=== PATIENT | female | born 1940 | race African-American/Black ===

== ENCOUNTER 2016-04-25 18:43 | Emergency (ER) | payer MEDICARE, MEDICAID ==
[2016-04-25 19:25] VITALS: BP 121/98
--- NOTE | 2016-04-25 19:41 | ER Document Report ---
ED General - General Chief Complaint: Other Stated Complaint: CHOKING Mode of Arrival: Medic Information source: Patient, Relative Notes: This is a 75-year-old female who is sent for evaluation from [facility] where she resides. Patient was witnessed to have a choking episode during dinner tonight at about 1830. The nursing staff there was concerned and so EMS was notified. By the time EMS arrived. The daughter states that the choking episode had resolved. Patient is now at her normal baseline mental status and breathing comfortably. The patient has no complaints. Family members at the bedside state that this is a frequent occurrence for the patient as she does not take her time with eating. She is on a pured food and thickened liquid diet. Family member states that this occurs frequently and that patient is at her baseline now. TRAVEL OUTSIDE OF THE [place] IN LAST 30 DAYS: No - Related Data Allergies/Adverse Reactions: tuberculin, purified protein deriva [From Tubersol] Allergy (Verified 04/25/16 19:19) Past Medical History - General Information source: Relative - Social History Smoking Status: Never Smoker Frequency of alcohol use: None Lives with: Skilled Nursing Family History: Reviewed & Not Pertinent - Past Medical History Cardiac Medical History: Reports: Hx Hypertension Denies: Hx Heart Murmur Pulmonary Medical History: Reports: Hx Bronchitis, Hx Pneumonia Denies: Hx Tuberculosis Neurological Medical History: Reports: Hx Cerebrovascular Accident. Denies: Hx Seizures Endocrine Medical History: Reports: Hx Diabetes Mellitus Type 2 Musculoskeltal Medical History: Reports Hx Arthritis Psychiatric Medical History: Reports: Hx Dementia, Hx Depression Past Surgical History: Reports: Hx Appendectomy, Hx Orthopedic Surgery - hip replacement. Denies: Hx Bowel Surgery, Hx Section, Hx Cholecystectomy , Hx Coronary Artery Bypass Graft, Hx Gastric Bypass Surgery, Hx Herniorrhaphy, Hx Hysterectomy, Hx Mastectomy, Hx Pacemaker, Hx Tonsillectomy, Hx Tubal Ligation - Immunizations Hx Diphtheria, Pertussis, Tetanus Vaccination: Yes Hx Pneumococcal Vaccination: 04/11/10 Review of Systems - Review of Systems Constitutional: denies: Chills, Fever EENT: No symptoms reported. denies: Nose congestion, Sinus discharge, Throat pain, Difficulty swallowing, Throat swelling Cardiovascular: denies: Chest pain, Dyspnea Respiratory: denies: Cough, Short of breath, Sputum Gastrointestinal: denies: Abdominal pain, Vomiting Genitourinary: denies: Burning, Dysuria Musculoskeletal: No symptoms reported Skin: No symptoms reported Neurological/Psychological: No symptoms reported Physical Exam - Vital signs Vitals: Temp Pulse Resp BP Pulse Ox 97.9 F 65 20 121/98 H 97 04/25/16 19:06 04/25/16 19:06 04/25/16 19:06 04/25/16 19:06 04/25/16 19:06 - Notes Notes: PHYSICAL EXAMINATION: GENERAL: Well-appearing, well-nourished elderly female in no acute distress. Smiling and comfortable HEAD: Atraumatic, normocephalic. EYES: Pupils equal round and reactive to light, extraocular movements intact, sclera anicteric, conjunctiva are normal. ENT: nares patent, oropharynx clear without exudates. Moist mucous membranes. NECK: Normal range of motion, supple without lymphadenopathy LUNGS: Breath sounds clear to auscultation bilaterally and equal. No wheezes rales or rhonchi. HEART: Regular rate and rhythm without murmurs ABDOMEN: Soft, nontender, normoactive bowel sounds. No guarding, no rebound. No masses appreciated. EXTREMITIES: Normal range of motion, no pitting or edema. No cyanosis. NEUROLOGICAL: Cranial nerves grossly intact. Normal speech. Normal sensory, motor exams. PSYCH: Normal mood, normal affect. SKIN: Warm, Dry, normal turgor, no rashes or lesions noted. Course - Re-evaluation Re-evalutation: 04/25/16 19:43 Offered to do labs/xray if pt was symptomatic at all or if family/patient were worried. Pt states she just wants to go home, and family states that this is a normal occurence for pt and they do not wish to have workup done at this time. Pt is at her baseline and has no complaints. I discussed strict return precautions and they are very agreeable to return [facility] tonight. - Vital Signs Vital signs: Temp Pulse Resp BP Pulse Ox 97.9 F 65 20 121/98 H 97 04/25/16 19:06 04/25/16 19:06 04/25/16 19:06 04/25/16 19:06 04/25/16 19:06 Discharge - Discharge Clinical Impression: Choking due to food (regurgitated) Condition: Good Disposition: HOME-SNF (ED ONLY) Additional Instructions: Choking Episode You have had a choking episode. This may occur from eating too quickly or not chewing food properly. If you have recurrent trouble swallowing or any worsening symptoms (fever, cough, breathing difficulty, etc) please return to the ER. Please follow up with you primary physician within 2-3 days.
== END 2016-04-25 20:30 ==
LOC: ER 18:43
DX: R09.89 Other specified symptoms and signs involving the circulatory and respiratory systems (principal); I10 Essential (primary) hypertension; E11.9 Type 2 diabetes mellitus without complications; Z86.73 Personal history of transient ischemic attack (TIA), and cerebral infarction without residual deficits; Z96.649 Presence of unspecified artificial hip joint
CPT/HCPCS: 99284

== ENCOUNTER 2020-01-03 16:13 | Inpatient (IN) | payer MEDICARE, MEDICAID ==
[~2020-01-03 16:13] MED LIST: ATROPINE SULFATE INJ 1 MG/10 ML DISP.SYRIN IV ONE; DOPAMINE HCL/D5W 800 MG/250 ML RTU BAG IV ONE; EPINEPHRINE INJ 1 MG/10 ML DISP.SYRIN ONE; LIDOCAINE 2% INJ-PF (100 MG/5 ML) SYRINGE ONE; SODIUM BICARBONATE 8.4% INJ 50 MEQ/50 ML DISP.SYRIN ONE; SUCCINYLCHOLINE CHLORIDE INJ 200 MG/10 ML VIAL ONE
[2020-01-03] MEDS ORDERED: RINGERS SOLUTION,LACTATED 1,000 ML IV ONE ×2 (16:28→16:37)
--- NOTE | 2020-01-03 16:42 | ER Document Report ---
ED General - General Stated Complaint: SEPSIS Time Seen by Provider: 01/03/20 16:24 Primary Care Provider: LETI FRYE MD [Primary Care Provider] - Follow up as needed TRAVEL OUTSIDE OF THE [place] IN LAST 30 DAYS: No - HPI Notes: Patient is a 79-year-old female brought into the emergency department for evaluation by EMS from the [facility]. Only report I have is from EMS. Evidently they noted her heart rate to be 60 this morning, were notably concerned. She has not been very talkative, seemed very tired. They checked her heart rate and found it to be the 40s. She has been having some diarrhea. EMS notes that her temperature was found to be 87 rectally. She was found to be markedly hypotensive, she was brought here to the emergency department for further evaluation. - Related Data Allergies/Adverse Reactions: tuberculin, purified protein deriva [From Tubersol] Allergy (Verified 01/03/20 16:57) Home Medications: Vitamin B6 50 mg daily, lisinopril 20 mg daily, Coreg 12 and half milligrams daily, hydralazine 50 mg daily, Flector patch twice a day, Lexapro 20 mg daily, Prilosec 20 mg daily, Aggrenox aspirin 1 capsule orally twice a day, ferrous sulfate 325 mg twice a day, donepezil 10 mg at bedtime, oxygen at 2 L continuously Past Medical History - General Information source: Emergency Med Personnel, Outside Facility Records - Social History Smoking Status: Never Smoker Frequency of alcohol use: None Family History: Reviewed & Not Pertinent - Past Medical History Cardiac Medical History: Reports: Hx Hypertension Denies: Hx Heart Murmur Pulmonary Medical History: Reports: Hx Bronchitis, Hx Pneumonia Denies: Hx Tuberculosis Neurological Medical History: Reports: Hx Cerebrovascular Accident. Denies: Hx Seizures, Hx Parkinson's Disease Endocrine Medical History: Reports: Hx Diabetes Mellitus Type 2 Musculoskeletal Medical History: Reports Hx Arthritis, Denies Hx Systemic Lupus Erythematosus Psychiatric Medical History: Reports: Hx Dementia, Hx Depression Past Surgical History: Reports: Hx Appendectomy, Hx Orthopedic Surgery - hip replacement. Denies: Hx Bowel Surgery, Hx Section, Hx Cholecystectomy, Hx Coronary Artery Bypass Graft, Hx Gastric Bypass Surgery, Hx Herniorrhaphy, Hx Hysterectomy, Hx Mastectomy, Hx Pacemaker, Hx Tonsillectomy, Hx Tubal Ligation - Immunizations Hx Diphtheria, Pertussis, Tetanus Vaccination: Yes Hx Pneumococcal Vaccination: 04/11/10 Physical Exam - Vital signs Vitals: Temp Pulse Ox 87.2 F L 100 01/03/20 16:15 01/03/20 16:15 - Notes Notes: This is a 79-year-old female who appears her stated age in a mild amount of distress. She is drowsy. She will awake to verbal stimuli, but only momentarily. She will intermittently follow commands. Head is normocephalic and atraumatic, pupils are 2 mm, round, reactive. Oral mucosa is moist. Heart is bradycardic. Lungs shows scattered rhonchi. Abdomen is soft, diffusely tender without rebound or guarding. 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 She has bandages in place over pressure ulcers on bilateral feet. Skin is cool and dry. Course - Re-evaluation Re-evalutation: 01/03/20 16:44 Patient presents to the emergency department for evaluation. Laboratory inves tigations were ordered. She was placed on a cardiac cath rn. Per my orders, bearhug are ordered, warmed fluids administered. I am concerned as the patient does have EKG changes consistent with hypothermia. She is currently hypotensive, will add more warm fluids. I added basic blood work, general sepsis work-up. Patient is currently stable, we will continue to monitor closely. 01/03/20 17:05 Noticed on monitor patient continued to be significantly hypotensive. Walked in and place order for Levophed to be started. Patient was having episodic significant bradycardia down into the 30s. Pacer pads placed. Helpful at this time that the Levophed titration will help with cardiac output. Patient will now awake with tactile stimuli, no longer verbal. She is in Trendelenburg, joel hugger and warm fluids in place. 01/03/20 18:54 Please see nursing notes for exact times. Patient became further bradycardic, further hypotensive. Decision was made to administer atropine to help with her heart rate, while transcutaneous pacing was initiated. Patient became less and less responsive. Decision was made to intubate the patient, provide sedation, and allow for more comfortable transcutaneous pacing. Intubation was performed with a MAC 3 and a 7.5 ET tube on glide scope. Patient did not have desaturation less than 94% during this. Please see separate procedure note. During the course of this, after intubation, the patient did lose pulses. Patient was administered epinephrine, bicarb, atropine. Please see nurses notes for exact dosages and timing. Patient already had Levophed drip initiated. Further pressor support was ordered with dopamine. We called the labs we did not have results back in regards to her CBC. I was concerned in light of her pale conjunctive that she was in fact anemic. Verbal report was given to me that the patient's hemoglobin was 6.7. I signed off on emergency release blood, 2 units of packed red blood cells were delivered to the emergency department to be rapidly infused to the patient. The patient did lose pulses once again. CPR initiated. During both episodes of CPR pulses were palpable with compressions. She received multiple rounds of epinephrine again, and ROSC was achieved. She was moderately hypotensive multiple times after regaining pulses. I did order an epinephrine drip, but her blood pressure has been a little labile. It has not yet been hung. I do have sedation in place. She is given cefepime to cover for her UTI and sepsis. I spoke with the ICU manager play, Dr. Jacinta Bojorquez, who graciously agreed to come see the patient. 01/03/20 19:01 Please note I spoke with patient's daughter, Reanna. She asks that no further heroic measures to be taken. This was witnessed by Butch Stover LPN. - Vital Signs Vital signs: Temp Pulse Resp BP Pulse Ox 87.2 F L 17 105/74 95 01/03/20 16:15 01/03/20 18:56 01/03/20 18:56 01/03/20 18:36 - Laboratory Result Diagrams: 01/03/20 16:22 01/03/20 16:22 Laboratory results interpreted by me: 01/03/20 01/03/20 01/03/20 16:22 16:22 16:22 WBC 18.1 H RBC 2.33 L Hgb 6.7 L Hct 20.6 L Seg Neuts % (Manual) 93 H Lymphocytes % (Manual) 1 L Abs Neuts (Manual) 17.4 H Abs Lymphs (Manual) 0.2 L PT 19.0 H Chloride 115 H Carbon Dioxide 21 L BUN 66 H Creatinine 1.70 H Est GFR ( Amer) 35 L Est GFR (MDRD) Non-Af 29 L Lactic Acid Calcium 8.3 L AST 13 L Total Protein 5.3 L Albumin 1.9 L Urine Protein Urine Bilirubin Urine Urobilinogen Ur Leukocyte Esterase Urine Ascorbic Acid Crossmatch 01/03/20 01/03/20 01/03/20 16:43 18:00 18:00 WBC RBC Hgb Hct Seg Neuts % (Manual) Lymphocytes % (Manual) Abs Neuts (Manual) Abs Lymphs (Manual) PT Chloride Carbon Dioxide BUN Creatinine Est GFR ( Amer) Est GFR (MDRD) Non-Af Lactic Acid 4.2 H Calcium AST Total Protein Albumin Urine Protein 100 H Urine Bilirubin SMALL H Urine Urobilinogen 4.0 H Ur Leukocyte Esterase SMALL H Urine Ascorbic Acid 20 H Crossmatch See Detail 01/03/20 18:03 WBC RBC Hgb Hct Seg Neuts % (Manual) Lymphocytes % (Manual) Abs Neuts (Manual) Abs Lymphs (Manual) PT Chloride Carbon Dioxide BUN Creatinine Est GFR ( Amer) Est GFR (MDRD) Non-Af Lactic Acid Calcium AST Total Protein Albumin Urine Protein Urine Bilirubin Urine Urobilinogen Ur Leukocyte Esterase Urine Ascorbic Acid Crossmatch See Detail - Diagnostic Test Radiology reviewed: Reports reviewed Radiology results interpreted by me: 01/03/20 18:58 Chest X-Ray 01/03/20 16:26 IMPRESSION: Limited by suboptimal patient positioning. No discrete radiographic evidence of acute cardiopulmonary abnormality. - EKG Interpretation by Me Additional EKG results interpreted by me: 01/03/20 18:58 Junctional rhythm at 45 bpm. Normal axis. IVCD with Dugan waves noted. Nonspecific ST changes but no acute ST elevation. No old studies available for comparison. Procedures - Intubation Orotracheal Airway evaluation: Large tongue, Loose teeth Medications: Etomidate, Succinylcholine Intubation method: Orotracheal Blade size: 3 Equipment used: Glidescope ETT size: 7.5 End tidal CO2 confirmed: Yes Intubation Complications: No complications Critical Care Note - Critical Care Note Total time excluding time spent on procedures (mins): 85 Discharge - Discharge Clinical Impression: Bradycardia Sepsis Qualifiers: Sepsis type: sepsis due to unspecified organism Sepsis acute organ dysfunction status: with acute organ dysfunction Severe sepsis acute organ dysfunction type: unspecified Severe sepsis shock status: with septic shock Qualified Code(s): A41 .9 - Sepsis, unspecified organism UTI (urinary tract infection) Qualifiers: Urinary tract infection type: site unspecified Hematuria presence: without hematuria Qualified Code(s): N39.0 - Urinary tract infection, site not specified Hypothermia Qualifiers: Encounter type: initial encounter Qualified Code(s): T68.XXXA - Hypothermia, initial encounter Diarrhea Qualifiers: Diarrhea type: unspecified type Qualified Code(s): R19.7 - Diarrhea, uns pecified Condition: Serious Disposition: ADMITTED INPATIENT Admitting Provider: [place] (Assembly Detailer) Unit Admitted: ICU Referrals: LETI FRYE MD [Primary Care Provider] - Follow up as needed
[2020-01-03 16:51] LABS: VENOUS BLOOD BASE EXCESS -4.1 mmol/L; VENOUS BLOOD HCO3 22.1 mmol/L (20-32); VENOUS BLOOD PCO2 45.3 mmHg (35-63); VENOUS BLOOD PH 7.31 (7.30-7.42)
[2020-01-03 16:53] LABS: INTERNATIONAL RATION (INR) 1.58
[2020-01-03 16:55] LABS: HEMATOCRIT 20.6 % (36.0-47.0); MEAN CORPUSCULAR HGB CONC 32.7 g/dL (32.0-36.0); MEAN CORPUSCULAR VOLUME 89 fl (80-97); PLATELET COUNT 230 10^3/uL (150-450); RED BLOOD COUNT 2.33 10^6/uL (3.72-5.28); RED CELL DISTRIBUTION WIDTH 13.7 % (11.5-14.0); WHITE BLOOD COUNT 18.1 10^3/uL (4.0-10.5)
[2020-01-03] MEDS ORDERED: NOREPINEPHRINE BITARTRATE INJ/PF 4 MG/4 ML SDV IV ONE ×3 (16:57→23:13)
[2020-01-03 17:12] LABS: ALBUMIN 1.9 g/dL (3.5-5.0); ALKALINE PHOSPHATASE 78 U/L (38-126); BILIRUBIN,DIRECT 0.3 mg/dL (0.0-0.4); BILIRUBIN,TOTAL 0.3 mg/dL (0.2-1.3); BLOOD UREA NITROGEN 66 mg/dL (7-20); CARBON DIOXIDE 21 mmol/L (22-30); GLUCOSE 102 mg/dL (75-110); TOTAL PROTEIN 5.3 g/dL (6.3-8.2)
[2020-01-03] MEDS ORDERED: ATROPINE SULFATE INJ 1 MG/1 ML VIAL IV ONE (17:17)
[2020-01-03] MEDS ORDERED: ATROPINE SULFATE INJ 0.4 MG/1 ML VIAL IV ONE (17:17)
[2020-01-03] MEDS ORDERED: ATROPINE SULFATE INJ 1 MG/1 ML VIAL ONE ×2 (17:18→17:41)
[2020-01-03] MEDS ORDERED: ETOMIDATE INJ/PF 20 MG/10 ML SDV IV ONE (17:21)
[2020-01-03 17:23] LABS: ANION GAP 7 (5-19); ASPARTATE AMINO TRANSFERASE 13 U/L (14-36); CALCIUM 8.3 mg/dL (8.4-10.2); CHLORIDE 115 mmol/L (98-107); POTASSIUM 4.6 mmol/L (3.6-5.0)
[2020-01-03 17:46] LABS: HEMOGLOBIN 6.7 g/dL (12.0-15.5)
[2020-01-03] MEDS ORDERED: NORMAL SALINE 250 ML IV PRN ×2 (17:47)
[2020-01-03 17:48] LABS: ABSOLUTE LYMPHOCYTES# (MANUAL) 0.2 10^3/uL (0.5-4.7); ABSOLUTE MONOCYTES # (MANUAL) 0.5 10^3/uL (0.1-1.4); BAND NEUTROPHILS % (MANUAL) 3 % (3-5); BASOPHILS % (MANUAL) 0 % (0-2); EOSINOPHILS % (MANUAL) 0 % (0-6); LYMPHOCYTES % (MANUAL) 1 % (13-45); MONOCYTES % (MANUAL) 3 % (3-13); SEGMENTED NEUTROPHILS % (MAN) 93 % (42-78); TOTAL CELLS COUNTED 100
--- NOTE | 2020-01-03 17:48 | RADIOLOGY REPORT (SQ) ---
EXAM DESCRIPTION: CHEST SINGLE VIEW IMAGES COMPLETED DATE/TIME: 01/03/2020 5:35 pm REASON FOR STUDY: sepsis COMPARISON: 04/14/2014 EXAM PARAMETERS: NUMBER OF VIEWS: One view. TECHNIQUE: Single frontal radiographic view of the chest acquired. RADIATION DOSE: NA LIMITATIONS: Patient rotation. FINDINGS: LUNGS AND PLEURA: No opacities, masses or pneumothorax. No pleural effusion. MEDIASTINUM AND HILAR STRUCTURES: Grossly normal. HEART AND VASCULAR STRUCTURES: Grossly normal. BONES: No acute findings. HARDWARE: None in the chest. OTHER: No other significant finding. IMPRESSION: Limited by suboptimal patient positioning. No discrete radiographic evidence of acute c ardiopulmonary abnormality. TECHNICAL DOCUMENTATION: JOB ID: [id number] 2010 [employer]- All Rights Reserved Reading location - IP/workstation name: [email or web address]
[2020-01-03 17:50] LABS: OVALOCYTES SLIGHT; PLATELET COMMENT ADEQUATE
[2020-01-03 17:53] LABS: C DIFFICILE GDH NEGATIVE (NEGATIVE)
[2020-01-03] MEDS ORDERED: CEFEPIME 2 GM/D5W RTU 2 GM/50 ML RTUPB IV ONE (18:02)
[2020-01-03] MEDS ORDERED: MIDAZOLAM HCL 50 MG/100 ML RTUINJ IV PRN (18:27)
[2020-01-03 18:35] LABS: APPEARANCE,URINE TURBID; BILIRUBIN,URINE SMALL (NEGATIVE); COLOR,URINE YELLOW; GLUCOSE, URINE NEGATIVE (NEGATIVE); KETONES,URINE NEGATIVE (NEGATIVE); LEUKOCYTE ESTERASE,URINE SMALL (NEGATIVE); NITRITE,URINE NEGATIVE (NEGATIVE); PROTEIN,URINE 100 mg/dL (NEGATIVE); URINE SPECIFIC GRAVITY 1.021
[2020-01-03] MEDS: DEXTROSE 5%-WATER 250 ML with EPINEPHRINE/PF 1 MG IV PRN ×4 (20:12→23:56)
[2020-01-03] MEDS: DOPAMINE HCL/DEXTROSE 5%-WATER 800 MG/250 ML RTUINJ IV PRN ×2 (20:12→22:54)
[2020-01-03] MEDS ORDERED: GLUCAGON,HUMAN RECOMB 1 MG INJ SUBCUT PRN (21:00)
[2020-01-03] MEDS ORDERED: DEXTROSE 50%-WATER 25 GM/50 ML DISP.SYRIN IV PRN ×2 (21:00)
[2020-01-03] MEDS ORDERED: RINGERS SOLUTION,LACTATED 1,000 ML IV PRN (21:00)
[2020-01-03] MEDS ORDERED: DEXTROSE 40% GEL 15 GM TUBE PO PRN ×2 (21:00)
[2020-01-03 21:32] LABS: ARTERIAL BLOOD BASE EXCESS -6.9 mmol/L; ARTERIAL BLOOD FIO2 100%; ARTERIAL BLOOD H2CO3 0.82 mmol/L (1.05-1.35); ARTERIAL BLOOD HCO3 16.6 mmol/L (20-24); ARTERIAL BLOOD O2 SATURATION 99.9 % (94-98); ARTERIAL BLOOD PCO2 27.1 mmHg (35-45); ARTERIAL BLOOD TOTAL CO2 17.4 mmol/L (21-25)
--- NOTE | 2020-01-03 21:40 | CRITICAL CARE ADMISSION REPORT ---
HPI Date:: 01/03/20 Time:: 21:00 Reason for ICU Reason:: Respiratory Failure, status post cardiac arrest. Admission Date/Time & PCP: Admission Date/Time: 01/03/20 19:20 Primary Care Provider: LETI FRYE HPI: 79-year-old female [facility] resident was noticed to have a heart rate in the 60s this morning and seemed very tired. Her heart rate decreased to the 40s and she was found to be markedly hypotensive. She was found by EMS to be hypothermic to 87 degrees rectally. She was brought to the emergency room where she was found to have EKG changes consistent with hypothermia. She was given fluids, however continued to the hypotensive and was started on a Levophed drip. Patient then became less responsive with worsening bradycardia and was given atropine and subsequently started on transcutaneous pacing. As she became less responsive from that point, she was intubated and placed on mechanical ve ntilation. Following intubation, she was without pulses. She received multiple rounds of CPR and ROSC was achieved after 45 minutes. Patient remained transcutaneously paced, was given cefepime for evidence of a UTI and remained on Levophed and dopamine drips. Upon evaluation, patient had an improved blood pressure and Levophed was titrated down. She arrived to the intensive care unit without attached pacing pads and had her own inherent rhythm. Consent was obtained for a central line and arterial line placement and goals of care were further discussed with her daughter Dipesh who wishes no further escalation of care after the central line placement and no CPR as per the patient's known wishes. - Diagnosis/Plan (1) Bradycardia Is this a current diagnosis for this admission?: Yes Plan: Patient's rhythm has returned to normal at this time. Her pacing pads were discontinued prior to arrival in ICU. Continue to monitor heart rate and transcutaneously pace if needed. Evaluate cause for bradycardia. Will check electrolytes and acid-base status. ABG and BMP pending. (2) Hypothermia Qualifiers: Encounter type: initial encounter Qualified Code(s): T68.XXXA - Hypothermia, initial encounter Is this a current diagnosis for this admission?: Yes Plan: Continue to monitor her core temperature. Continue Carlton hugger as needed. (3) Sepsis Qualifiers: Sepsis type: sepsis due to unspecified organism Sepsis acute organ d ysfunction status: with acute organ dysfunction Severe sepsis acute organ dysfunction type: unspecified Severe sepsis shock status: with septic shock Qualified Code(s): A41.9 - Sepsis, unspecified organism; R65.21 - Severe sepsis with septic shock Is this a current diagnosis for this admission?: Yes Plan: Continue volume resuscitation. Monitor blood pressure closely. Central line to be placed for delivery of vasoactive medications. Continue antibiotics with cefepime and Levaquin Monitor renal panel. Obtain blood, urine and sputum cultures (4) UTI (urinary tract infection) Qualifiers: Urinary tract infection type: site unspecified Hematuria presence: without hematuria Qualified Code(s): N39.0 - Urinary tract infection, site not specified Is this a current diagnosis for this admission?: Yes Plan: Continue antibiotics as above. Past Medical History Cardiac Medical History: Reports: Hypertension Denies: Heart Murmur Pulmonary Medical History: Reports: Bronchitis, Pneumonia Denies: Tuberculosis Neurological Medical History: Denies: Seizures Endocrine Medical History: Reports: Diabetes Mellitus Type 2 Musculoskeltal Medical History: Reports: Arthritis Psychiatric Medical History: Reports: Dementia, Depression Past Surgical History Past Surgical History: Reports: Appendectomy, Orthopedic Surgery - hip replacement Denies: Amputation, Section, Cholecystectomy, Coronary Artery Bypass Graft, Gastric Bypass Surgery, Herniorrhaphy, Hysterectomy, Mastectomy, Pacem shreya, Tonsillectomy, Tubal Ligation Social/Family History - Social History Smoking Status: Never Smoker Frequency of Alcohol Use: None Hx Recreational Drug Use: No Hx Prescription Drug Abuse: No - Medication/Allergies Home Medications: Aspirin/Dipyridamole [Aggrenox 25 mg/200 mg Capsule SA] 1 cap.sr PO Q12 11/13/11 Diclofenac Epolamine [Flector] 1 each TP BID 11/13/11 Donepezil HCl [Aricept 5 mg Tablet] 10 mg PO QHS 11/13/11 Escitalopram Oxalate [Lexapro] 20 mg PO DAILY 11/13/11 Hydralazine HCl [Apresoline 50 mg Tablet] 50 mg PO QID 11/13/11 Lisinopril [Prinivil 20 mg Tablet] 40 mg PO DAILY 11/13/11 Omeprazole [Prilosec 20 mg Capsule] 20 mg PO DAILY 11/13/11 Acetaminophen [Tylenol 325 mg Tablet] 650 mg PO Q4H PRN 04/21/13 Diphenhydramine HCl [Benadryl 25 mg Capsule] 25 mg PO TID PRN 04/21/13 Ferrous Sulfate [Feosol 325 mg Tablet] 1 tab PO DAILY 04/21/13 Amoxicillin/Potassium Clav [Augmentin Es-600 Suspension] 600 mg PO BID #100 ml 04/24/13 Carvedilol [Coreg 12.5 mg Tablet] 12.5 mg PO Q12 #0 tablet 04/24/13 Prednisone 20 mg PO ASDIR PRN #30 tablet 04/24/13 Prednisone [Deltasone 20 mg Tablet] 2 tab PO DAILY 4 Days tablet 09/09/13 Cephalexin Monohydrate [Keflex 500 mg Capsule] 500 mg PO BID #14 capsule 03/01/14 Allergies/Adverse Reactions: tuberculin, purified protein deriva [From Tubersol] Allergy (Verified 01/03/20 16:57) Review of Systems ROS unobtainable: Due to endotracheal tube Physical Exam Vital Signs: Temp Pulse Resp BP Pulse Ox 90.1 F L 78 17 113/82 92 01/03/20 20:27 01/03/20 20:27 01/03/20 20:27 01/03/20 20:27 01/03/20 20:27 Intake & Output 01/02/20 01/03/20 01/04/20 06:59 06:59 06:59 Intake Total 600 Balance 600 Weight 60.6 kg Weight/Height Weight 60.6 kg Height 5 ft 2 in General appearance: PRESENT: no acute distress Head exam: PRESENT: atraumatic Eye exam: PRESENT: PERRLA Ear exam: PRESENT: normal external ear exam Mouth exam: PRESENT: dry mucosa Neck exam: ABSENT: JVD, lymphadenopathy Respiratory exam: PRESENT: clear to auscultation faraz. ABSENT: rales, rhonchi, wheezes Cardiovascular exam: PRESENT: RRR, +S1, +S2 Pulses: PRESENT: normal carotid pulses, +1 pedal pulses bilateral Vascular exam: PRESENT: normal capillary refill GI/Abdominal exam: PRESENT: hypoactive bowel sounds Extremities exam: PRESENT: other - Bilateral lower extremities extremely contracted. Musculoskeletal exam: ABSENT: ambulatory, full ROM Neurological exam: PRESENT: other - Right upper extremity appears flaccid. Left side more rigid.. ABSENT: alert, awake Skin exam: PRESENT: pallor Tubes/Lines: PRESENT: Endotracheal Tube Laboratory/Radiographs Laboratory Results: 01/03/20 16:22 01/03/20 16:22 01/03/20 01/03/20 01/03/20 16:22 16:22 16:22 WBC 18.1 H RBC 2.33 L Hgb 6.7 L Hct 20.6 L MCV 89 MCH 29.0 MCHC 32.7 RDW 13.7 Plt Count 230 Seg Neutrophils % Not Reportable VBG pH 7.31 VBG pCO2 45.3 VBG HCO3 22.1 VBG Base Excess -4.1 Sodium 143.0 Potassium 4.6 Chloride 115 H Carbon Dioxide 21 L Anion Gap 7 BUN 66 H Creatinine 1.70 H Est GFR ( Amer) 35 L Glucose 102 Lactic Acid Calcium 8.3 L Magnesium 2.2 Total Bilirubin 0.3 AST 13 L Alkaline Phosphatase 78 Total Protein 5.3 L Albumin 1.9 L Urine Color Urine Appearance Urine pH Ur Specific [place] Urine Protein Urine Glucose (UA) Urine Ketones Urine Blood Urine Nitrite Ur Leukocyte Esterase Urine WBC (Auto) Urine RBC (Auto) Blood Type Antibody Screen 01/03/20 01/03/20 01/03/20 16:22 16:43 18:00 WBC RBC Hgb Hct MCV MCH MCHC RDW Plt Count Seg Neutrophils % VBG pH VBG pCO2 VBG HCO3 VBG Base Excess Sodium Potassium Chloride Carbon Dioxide Anion Gap BUN Creatinine Est GFR ( Amer) Glucose Lactic Acid 1.3 4.2 H Calcium Magnesium Total Bilirubin AST Alkaline Phosphatase Total Protein Albumin Urine Color YELLOW Urine Appearance TURBID Urine pH 5.0 Ur Specific [place] 1.021 Urine Protein 100 H Urine Glucose (UA) NEGATIVE Urine Ketones NEGATIVE Urine Blood NEGATIVE Urine Nitrite NEGATIVE Ur Leukocyte Esterase SMALL H Urine WBC (Auto) >182 Urine RBC (Auto) 20 Blood Type Antibody Screen 01/03/20 18:00 WBC RBC Hgb Hct MCV MCH MCHC RDW Plt Count Seg Neutrophils % VBG pH VBG pCO2 VBG HCO3 VBG Base Excess Sodium Potassium Chloride Carbon Dioxide Anion Gap BUN Creatinine Est GFR ( Amer) Glucose Lactic Acid Calcium Magnesium Total Bilirubin AST Alkaline Phosphatase Total Protein Albumin Urine Color Urine Appearance Urine pH Ur Specific [place] Urine Protein Urine Glucose (UA) Urine Ketones Urine Blood Urine Nitrite Ur Leukocyte Esterase Urine WBC (Auto) Urine RBC (Auto) Blood Type B NEGATIVE Antibody Screen NEGATIVE 01/03/20 16:22 Troponin I < 0.012 Impressions: Chest X-Ray 01/03/20 16:26 IMPRESSION: Limited by suboptimal patient positioning. No discrete radiographic evidence of acute cardiopulmonary abnormality. All labs, radiographs, diagnostic studies and EKGs were personally reviewed: Yes In addition, reports of radiographic and diagnostic studies were read: Yes Critical Time Critical Time (minutes): 80 -: The care of a critically ill patient is dynamic. This note represents a static moment in the admission process. Orders and treatments may be given simultaneously and urgently, and time is not national sales representative of the treatment process. This patient requires Critical Care secondary to life threatening organ or limb dysfunction. Without Critical Care services, the patient is at risk for increased mortality and morbidity.
[2020-01-03] MEDS ORDERED: HEPARIN SOD (PORCINE) 5,000 UNIT/ML 1 ML VIAL SUBCUT SCH (22:00)
[2020-01-03] MEDS ORDERED: PHENTOLAMINE MESYLATE INJ 5 MG VIAL ONE (22:48)
[2020-01-03] MEDS ORDERED: PHENTOLAMINE MESYLATE INJ 5 MG VIAL IV ONE (23:00)
--- NOTE | 2020-01-03 23:14 | EKG REPORT ---
SEVERITY:- ABNORMAL ECG - JUNCTIONAL ESCAPE RHYTHM NONSPECIFIC INTRAVENTRICULAR CONDUCTION DELAY BORDERLINE R WAVE PROGRESSION, ANTERIOR LEADS : Confirmed by: Grecia Brenner MD 03-Jan-2020 23:12:37
--- NOTE | 2020-01-03 23:36 | RADIOLOGY REPORT (SQ) ---
CLINICAL INDICATION: line placement. Intubation TECHNIQUE: A single portable AP view was obtained of the chest at 2303 hours. COMPARISON: 1704 hours. FINDINGS: The cardiomediastinal silhouette is enlarged. The lungs demonstrate progressive left pleural effusion also progressive volume loss left hemithorax with leftward shift of the mediastinum. The right lung is grossly clear. No pneumothorax. Endotracheal tube tip is lower limits of acceptable approximately 1.7 cm above the rosario. Right IJ central venous catheter tip projects over SVC, acceptable. IMPRESSION: Acceptable positioning of the supportive appliances. Progressive opacity from of pleural and parenchymal disease left hemithorax.
[2020-01-03] MEDS ORDERED: NORMAL SALINE INJ/PF 0.9% 10 ML SDV IV PRN (23:42)
[2020-01-04 00:18] LABS: HEMATOCRIT 35.3 % (36.0-47.0); MEAN CORPUSCULAR HEMOGLOBIN 29.3 pg (27.0-33.4); MEAN CORPUSCULAR HGB CONC 33.9 g/dL (32.0-36.0); MEAN CORPUSCULAR VOLUME 87 fl (80-97); PLATELET COUNT 290 10^3/uL (150-450); RED BLOOD COUNT 4.09 10^6/uL (3.72-5.28); RED CELL DISTRIBUTION WIDTH 14.5 % (11.5-14.0)
[2020-01-04 00:43] LABS: ABSOLUTE LYMPHOCYTES# (MANUAL) 0.8 10^3/uL (0.5-4.7); ABSOLUTE MONOCYTES # (MANUAL) 1.1 10^3/uL (0.1-1.4); BAND NEUTROPHILS % (MANUAL) 1 % (3-5); BASOPHILS % (MANUAL) 0 % (0-2); EOSINOPHILS % (MANUAL) 0 % (0-6); LYMPHOCYTES % (MANUAL) 3 % (13-45); MONOCYTES % (MANUAL) 4 % (3-13); SEGMENTED NEUTROPHILS % (MAN) 92 % (42-78); TOTAL CELLS COUNTED 100
[2020-01-04 00:45] LABS: ANISOCYTOSIS SLIGHT; PLATELET COMMENT ADEQUATE; TOXIC GRANULATION SLIGHT; TOXIC VACUOLATION PRESENT
--- NOTE | 2020-01-04 01:19 | Operative Report ---
Bedside Procedure - History of Present Illness History of Present Illness: Procedure: Central line placement Indication: Vasoactive medications, IV fluids, blood draws. Procedure restrictive preparation operator: KAYLIE Gutierrez Attending physician:Dr. Bojorquez Consent: Consent was obtained from daughter prior to the procedure. Indications, risks, and benefits were explained and all questions were addressed. Procedure summary: The [facility] central line insertion practice form was completed by RN. A timeout was performed. My hands were washed immediately prior to the procedure. I wore surgical cap, mask with protective eyewear, full gown and sterile gloves throughout the procedure. The patient was placed in Trendelenburg position. Right neck and chest region were prepped using chlorhexidine scrub and draped in sterile fashion using a full drape. Sterile probe cover was placed on ultrasound probe. The medial and lateral heads of the sternocleidomastoid muscle were identified as was the carotid pulse. The internal jugular vein was identified using ultrasound. Anesthesia was achieved over the vein using 3 cc of 1% lidocaine. Using real-time out of plane guidance, the introducer needle was inserted into the internal jugular vein under direct ultrasound visualization. Venous blood was withdrawn. The syringe was removed and a guidewire was advanced into the introducer needle. The guidewire was visualized in the internal jugular vein by ultrasound. A small incision was made at the skin surface with a scalpel and the introducer needle was exchanged for a dilator over the guidewire. After appropriate dilation was obtained, the dilator was exchanged over a wire for a 7 Cymro, 20 cm central venous catheter. The wire was removed and the catheter was sutured in place at 15 cm. A IO patch was placed and a sterile Sorbaview shield was placed over the catheter at the insertion site. The patient tolerated the procedure well without any hemodynamic compromise. At time of procedure completion, all ports aspirated and flushed properly. Postprocedure x-ray shows central line in proper place. Estimated blood loss is approximately 10 cc. Indication for Procedure: Vasoactive medications Date: 01/03/20 Provider: STEVEN ESTEVES - Central Line Right Internal jugular Time completed: 10:00 Consent obtained: Yes Central line pre-insertion: Sterile PPE donned, Chloraprep applied, Sterile drapes applied Central line lumen type: Triple Anesthetic type: 1% Lidocaine mL's of anesthesia: 3 Ultrasound guided: Yes CM at insertion site: 15 Line secured with sutures: Yes Central line post-insertion: Blood return from lumens, Biopatch applied, Sutured, Sterile dressing applied, Position confirmed w/ CXR Number of attempts: 2 Complications: No
--- NOTE | 2020-01-04 01:21 | ADVANCED CARE ---
- Diagnosis (1) Bradycardia Diagnosis Current: Yes (2) Sepsis Diagnosis Current: Yes (3) UTI (urinary tract infection) Diagnosis Current: Yes Resuscitation Status: Do Not Resuscitate Discussion: Extensive discussion held with the patient's daughter Dipesh and family members. As per the patient's known wishes, the decision has been made to withdraw ventilator support and provide comfort measures only. Care Planning Goals: Comfort care only. Time Spent: 30 minutes
--- NOTE | 2020-01-04 01:26 | PDOC CRITICAL CARE PROG REPORT ---
General Date:: 01/04/20 ICU Day:: 1 Ventilator Day:: 1 Hospital Day:: 1 Resuscitation Status: Do Not Resuscitate Events in the past 12 to 24 Hours:: Patient was admitted as per ICU admission note. CXR showed a significant left- sided pneumothorax which is likely contributing to her hypotension. Patient's family had expressed that they did not want any escalation of care. After speaking again with the patient's daughter and family, the decision was made not to put in a chest tube to attempt to resolve the pneumothorax. As per the patient's daughter, the patient expressed several days ago that she did not want any further medical care and that she was ready to . In accordance to her wishes, the family has made the decision to remove her from ventilatory support and focus all of her care on comfort measures only. The situation was discussed with Dr. Bojorquez as well as Dr. Erickson who agreed with their decision given the patient's chronic debility and severe acute condition. Reason for ICU Addmission:: Respiratory Failure, status post cardiac arrest. - Medications: Medications reviewed and adjusted accordingly: Yes Physical Exam Vital Signs: Temp Pulse Resp BP Pulse Ox 90.1 F L 78 20 71/53 L 100 01/03/20 20:27 01/03/20 20:27 01/03/20 23:17 01/03/20 23:17 01/03/20 23:17 Intake & Output 01/02/20 01/03/20 01/04/20 06:59 06:59 06:59 Intake Total 850 Output Total 65 Balance 785 Weight 60.6 kg Weight/Height Weight 60.6 kg Height 5 ft 2 in Laboratory/Radiographs Laboratory Results: 01/03/20 22:15 01/03/20 16:22 01/03/20 01/03/20 01/03/20 16:22 16:22 16:22 WBC 18.1 H RBC 2.33 L Hgb 6.7 L Hct 20.6 L MCV 89 MCH 29.0 MCHC 32.7 RDW 13.7 Plt Count 230 Seg Neutrophils % Not Reportable Carbonic Acid HCO3/H2CO3 Ratio ABG pH ABG pCO2 ABG pO2 ABG HCO3 ABG O2 Saturation ABG Base Excess VBG pH 7.31 VBG pCO2 45.3 VBG HCO3 22.1 VBG Base Excess -4.1 FiO2 Sodium 143.0 Potassium 4.6 Chloride 115 H Carbon Dioxide 21 L Anion Gap 7 BUN 66 H Creatinine 1.70 H Est GFR ( Amer) 35 L Glucose 102 Lactic Acid Calcium 8.3 L Magnesium 2.2 Total Bilirubin 0.3 AST 13 L Alkaline Phosphatase 78 Total Protein 5.3 L Albumin 1.9 L Urine Color Urine Appearance Urine pH Ur Specific [place] Urine Protein Urine Glucose (UA) Urine Ketones Urine Blood Urine Nitrite Ur Leukocyte Esterase Urine WBC (Auto) Urine RBC (Auto) Blood Type Antibody Screen 01/03/20 01/03/20 01/03/20 16:22 16:43 18:00 WBC RBC Hgb Hct MCV MCH MCHC RDW Plt Count Seg Neutrophils % Carbonic Acid HCO3/H2CO3 Ratio ABG pH ABG pCO2 ABG pO2 ABG HCO3 ABG O2 Saturation ABG Base Excess VBG pH VBG pCO2 VBG HCO3 VBG Base Excess FiO2 Sodium Potassium Chloride Carbon Dioxide Anion Gap BUN Creatinine Est GFR ( Amer) Glucose Lactic Acid 1.3 4.2 H Calcium Magnesium Total Bilirubin AST Alkaline Phosphatase Total Protein Albumin Urine Color YELLOW Urine Appearance TURBID Urine pH 5.0 Ur Specific [place] 1.021 Urine Protein 100 H Urine Glucose (UA) NEGATIVE Urine Ketones NEGATIVE Urine Blood NEGATIVE Urine Nitrite NEGATIVE Ur Leukocyte Esterase SMALL H Urine WBC (Auto) >182 Urine RBC (Auto) 20 Blood Type Antibody Screen 01/03/20 01/03/20 01/03/20 18:00 19:36 22:15 WBC RBC Hgb Hct MCV MCH MCHC RDW Plt Count Seg Neutrophils % Carbonic Acid 0.82 L HCO3/H2CO3 Ratio 20:1 ABG pH 7.40 ABG pCO2 27.1 L ABG pO2 442.0 H ABG HCO3 16.6 L ABG O2 Saturation 99.9 H ABG Base Excess -6.9 VBG pH VBG pCO2 VBG HCO3 VBG Base Excess FiO2 100% Sodium Potassium Chloride Carbon Dioxide Anion Gap BUN Creatinine Est GFR ( Amer) Glucose Lactic Acid 2.1 Calcium Magnesium Total Bilirubin AST Alkaline Phosphatase Total Protein Albumin Urine Color Urine Appearance Urine pH Ur Specific [place] Urine Protein Urine Glucose (UA) Urine Ketones Urine Blood Urine Nitrite Ur Leukocyte Esterase Urine WBC (Auto) Urine RBC (Auto) Blood Type B NEGATIVE Antibody Screen NEGATIVE 01/03/20 22:15 WBC 28.0 H RBC 4.09 Hgb 12.0 D Hct 35.3 L MCV 87 MCH 29.3 MCHC 33.9 RDW 14.5 H Plt Count 290 Seg Neutrophils % Not Reportable Carbonic Acid HCO3/H2CO3 Ratio ABG pH ABG pCO2 ABG pO2 ABG HCO3 ABG O2 Saturation ABG Base Excess VBG pH VBG pCO2 VBG HCO3 VBG Base Excess FiO2 Sodium Potassium Chloride Carbon Dioxide Anion Gap BUN Creatinine Est GFR ( Amer) Glucose Lactic Acid Calcium Magnesium Total Bilirubin AST Alkaline Phosphatase Total Protein Albumin Urine Color Urine Appearance Urine pH Ur Specific [place] Urine Protein Urine Glucose (UA) Urine Ketones Urine Blood Urine Nitrite Ur Leukocyte Esterase Urine WBC (Auto) Urine RBC (Auto) Blood Type Antibody Screen 01/03/20 16:22 Troponin I < 0.012 Impressions: Chest X-Ray 01/03/20 22:37 IMPRESSION: Acceptable positioning of the supportive appliances. Progressive opacity from of pleural and parenchymal disease left hemithorax. Assessment and Plan - Diagnosis (1) Bradycardia Is this a current diagnosis for this admission?: Yes (2) Sepsis Qualifiers: Sepsis type: sepsis due to unspecified organism Sepsis acute organ dysfunction status: with acute organ dysfunction Severe sepsis acute organ dysfunction type: unspecified Severe sepsis shock status: with septic shock Qualified Code(s): A41.9 - Sepsis, unspecified organism; R65.21 - Severe sepsis with septic shock Is this a current diagnosis for this admission?: Yes (3) UTI (urinary tract infection) Qualifiers: Urinary tract infection type: site unspecified Hematuria presence: without hematuria Qualified Code(s): N39.0 - Urinary tract infection, site not specified Is this a current diagnosis for this admission?: Yes Critical Time Critical Time (minutes): 60 Level of Care: ICU -: 1. The care of a critical patient is a dynamic process. This note is a new accounts representative synopsis but static in nature. The timeframe for treatments given in order is not necessarily the actual time these treatments may have been done. 2. This patient requires critical care secondary to ongoing requirements for therapy not offered or safe outside the critical care environment. Transfer to a lower level of care will result in altered life or limb morbidity and mortality. 3. Multidisciplinary rounds completed. 4. ABCDE bundle addressed.
[2020-01-04] MEDS ORDERED: MORPHINE SULFATE 10 MG/ML INJ ONE (01:38)
[2020-01-04] MEDS: MORPHINE SULFATE 10 MG/ML INJ IV PRN ×2 (02:03→02:18)
--- NOTE | 2020-01-04 03:10 | Death Summary ---
Summary Date : 01/04/20 Time of :: 02:45 Autopsy: No Resuscitation Status: Do Not Resuscitate - Final Diagnosis (1) Bradycardia Is this a current diagnosis for this admission?: Yes (2) Sepsis Is this a current diagnosis for this admission?: Yes (3) UTI (urinary tract infection) Is this a current diagnosis for this admission?: Yes Hospital Course:: Patient was admitted for bradycardia, she became extremely lethargic and was intubated in the emergency department. Following intubation, she lost her pulse and underwent CPR with ROSC after several rounds of epinephrine equating about 45 minutes. Patient was transferred to the intensive care unit on Levophed and dopamine drips. A central line was placed. After a right IJ triple-lumen catheter was successfully placed under ultrasound guidance and no complications, a left pneumothorax was seen on confirmation CXR. Given the patient's known wishes, the family had decided not to escalate care, and not to pursue a chest tube. Also in accordance with her wishes, the family arrived at the hospital and requested that we withdraw ventilatory support and focus all care on comfort. Family was at her bedside following extubation. Moments after the family went home, the patient was without respiration and heart rate. She was pronounced at 2:45. Patient's family was notified and emergency medical technician was notified.
[2020-01-04 03:11] VITALS: BP 84/57
== END 2020-01-04 04:40 | disposition expired | DRG 871 ==
LOC: ER 16:13 → EH 19:20 → ICU 20:22 → UNDODISIN 01-04 02:15
PROVIDERS: ADMIT Internal Medicine Critical Care Medicine; ATTEND Internal Medicine Critical Care Medicine
PROC: 5A1935Z Respiratory Ventilation, Less than 24 Consecutive Hours (ICD-10-PCS; principal; 2020-01-03)
PROC: 30233N1 Transfusion of Nonautologous Red Blood Cells into Peripheral Vein, Percutaneous Approach (ICD-10-PCS; 2020-01-03)
PROC: 0BH17EZ Insertion of Endotracheal Airway into Trachea, Via Natural or Artificial Opening (ICD-10-PCS; 2020-01-03)
PROC: 5A12012 Performance of Cardiac Output, Single, Manual (ICD-10-PCS; 2020-01-03)
PROC: 02HV33Z Insertion of Infusion Device into Superior Vena Cava, Percutaneous Approach (ICD-10-PCS; 2020-01-03)
DX: A41.9 Sepsis, unspecified organism (principal); R65.21 Severe sepsis with septic shock; J93.9 Pneumothorax, unspecified; N39.0 Urinary tract infection, site not specified; R09.2 Respiratory arrest; T68.XXXA Hypothermia, initial encounter; L89.899 Pressure ulcer of other site, unspecified stage; F03.90 Unspecified dementia, unspecified severity, without behavioral disturbance, psychotic disturbance, mood disturbance, and anxiety; R00.1 Bradycardia, unspecified; I10 Essential (primary) hypertension; E11.9 Type 2 diabetes mellitus without complications; M19.90 Unspecified osteoarthritis, unspecified site; F32.9 Major depressive disorder, single episode, unspecified; Z96.649 Presence of unspecified artificial hip joint; R53.81 Other malaise; Z88.7 Allergy status to serum and vaccine; Z86.73 Personal history of transient ischemic attack (TIA), and cerebral infarction without residual deficits; Z11.59 Encounter for screening for other viral diseases
CPT/HCPCS: 36415; 36430; 71045; 80053; 81001; 82803; 82962; 83605; 83735; 84484; 85025; 85610; 86850; 86900; 86901; 86920; 87040; 87086; 87088; 87186; 87324; 87449; 87635; 93005; 93010; 94002; 94003; 96361; 96374; 99285; C9803; J0171; J0330; J0461; J1265; J1644; J2001; J2250; J2270; J2760; J3490; J7060; J7120; P9016